=== PATIENT | male | born 1950 | race Caucasian/White ===

== ENCOUNTER 2019-07-20 21:40 | Emergency (ER) | payer BC, OTHER ==
[~2019-07-20] VITALS: Ht 172.7 cm; Wt 54.4 kg
[2019-07-20] MEDS ORDERED: LISINOPRIL 10 MG TABLET ONE (21:56)
[2019-07-20] MEDS ORDERED: LISINOPRIL 10 MG TABLET PO ONE (22:00)
--- NOTE | 2019-07-20 22:15 | NUR ---
DR BANG AT BEDSIDE FOR MSE.
[2019-07-20] MEDS ORDERED: CLONIDINE HCL 0.1 MG TABLET ONE (22:24)
[2019-07-20] MEDS ORDERED: CLONIDINE HCL 0.1 MG TABLET PO ONE (22:30)
--- NOTE | 2019-07-20 23:35 | NUR ---
Patient discharged to home in stable conditon. Written and verbal after care instructions given. Patient verbalizes understanding of instructions. Gauze and supplies given for pt. Pt walked out of ER with stable gait. All belongings with pt.
[2019-07-20 23:36] VITALS: BP 159/81
== END 2019-07-20 23:30 | disposition home or self-care (01) ==
LOC: ER 21:40
DX: R04.0 Epistaxis (principal); I10 Essential (primary) hypertension; E78.5 Hyperlipidemia, unspecified; J44.9 Chronic obstructive pulmonary disease, unspecified; F15.10 Other stimulant abuse, uncomplicated; F17.200 Nicotine dependence, unspecified, uncomplicated
CPT/HCPCS: A4663